=== PATIENT | female | born 1975 | race Caucasian/White ===

== ENCOUNTER 2017-04-25 23:57 | Emergency (ER) | payer OTHER ==
[2017-04-26 01:04] VITALS: BMI 28.1
[2017-04-26] MEDS ORDERED: ONDANSETRON 4 MG/2 ML VIAL IVPUSH STA (01:13)
[2017-04-26] MEDS ORDERED: SODIUM CHLORIDE 1,000 ML IV STA ×2 (01:13→01:14)
[2017-04-26] MEDS ORDERED: PANTOPRAZOLE SODIUM 40 MG in SODIUM CHLORIDE 100 ML IVPB ONE (01:13)
[2017-04-26] MEDS ORDERED: PANTOPRAZOLE SODIUM 100 ML IVPB ONE (01:26)
--- NOTE | 2017-04-26 01:42 | PDOC ---
History of Present Illness - General History Source: Patient Exam Limitations: No Limitations - History of Present Illness Initial Comments: 04/26/17 01:48 The patient is a 41 year old female with significant past medical history of diabetes who presents to the ED for less than 24 hours of abdominal pain. Patient describes pain as nonradiating and crampy in nature in the epigastric region. She reports associated mild nausea, vomiting x2, and several episodes of soft stool. The patient denies fever, chills, cough, SOB, chest pain, and palpitations. The patient denies dysuria, hematuria, urgency, and frequency. Allergies: NKDA Social History: No alcohol, tobacco, or drug use reported. Past Surgical History: s/p cholecystectomy PCP: Dr. Gaby Zuleta <Letitia Connelly - Last Filed: 04/26/17 01:47> - General History Source: Patient <TravisMarck strong - Last Filed: 04/26/17 03:45> - General Chief Complaint: Vomiting/Diarrhea Stated Complaint: VOMITING/DIARRHEA Time Seen by Provider: 04/26/17 01:10 Past History <Letitia Connelly - Last Filed: 04/26/17 01:47> - Past Medical History Diabetes: Yes (type 2) - Psycho/Social/Smoking Cessation Hx Suicidal Ideation: No Smoking History: Never smoked Have you smoked in the past 12 months: No Information on smoking cessation initiated: No Hx Alcohol Use: No Drug/Substance Use Hx: No <Marck Parker - Last Filed: 04/26/17 03:45> - Past Medical History Allergies/Adverse Reactions: Allergies Allergy/AdvReac Type Severity Reaction Status Date / Time No Known Allergies Allergy Verified 04/26/17 01:23 Home Medications: Ambulatory Orders Famotidine [Pepcid] 40 mg PO DAILY #30 tablet 04/26/17 Metformin HCl 500 mg PO BID 04/26/17 Ondansetron [Zofran *Odt*] 4 mg SL TID #30 od.tablet 04/26/17 Review of Systems - Review of Systems Able to Perform ROS?: Yes Comments:: 04/26/17 01:48 CONSTITUTIONAL: Absent: fever, no chills, no fatigue EYES: Absent: visual changes ENT: Absent: ear pain, no sore throat CARDIOVASCULAR: Absent: chest pain, no palpitations RESPIRATORY: Absent: cough, no SOB GI: +abdominal pain, nausea, vomiting, diarrhea Absent: no constipation GENITOURINARY: Absent: dysuria, no frequency, no hematuria MUSCULOSKELETAL: Absent: back pain, no arthralgia, no myalgia SKIN: Absent: rash NEURO: Absent: headache <PjjanetteLetitia - Last Filed: 04/26/17 01:47> *Physical Exam - Vital Signs Last Vital Signs Temp Pulse Resp BP Pulse Ox 98.3 F 76 18 137/91 98 04/26/17 01:02 04/26/17 01:02 04/26/17 01:02 04/26/17 01:02 04/26/17 01:02 - Physical Exam Comments: 04/26/17 01:49 GENERAL: Well-appearing, well-nourished. No apparent distress. HEENT: Normocephalic, atraumatic. PERRL, EOM intact. CARDIOVASCULAR: Normal S1, S2. Regular rate and rhythm. PULMONARY: Clear to auscultation bilaterally. ABDOMEN: Soft, non-distended, mild epigastric tenderness. No rebound or guarding. Normoactive bowel sounds. EXTREMITIES: Normal ROM in all four extremities. No gross deformities. SKIN: Warm, dry. No rash NEUROLOGICAL: No focal neurological deficits. <Letitia Connelly - Last Filed: 04/26/17 01:47> - Vital Signs Last Vital Signs Temp Pulse Resp BP Pulse Ox 98.3 F 76 18 137/91 98 04/26/17 01:02 04/26/17 01:02 04/26/17 01:02 04/26/17 01:02 04/26/17 01:02 <Marck Parker - Last Filed: 04/26/17 03:45> ED Treatment Course - LABORATORY CBC & Chemistry Diagram: 04/26/17 01:40 04/26/17 01:40 <Letitia Connelly - Last Filed: 04/26/17 01:47> - LABORATORY CBC & Chemistry Diagram: 04/26/17 01:40 04/26/17 01:40 <Marck Parker - Last Filed: 04/26/17 03:45> Medical Decision Making - Medical Decision Making 04/26/17 03:45 Dr. Parker: The scribe's documentation has been prepared under my direction and personally reviewed by me in its entirery. I confirm that the note above accurately reflects all work, treatment, procedures, and medical decision making performed by me. <Marck Parker - Last Filed: 04/26/17 03:45> *DC/Admit/Observation/Transfer - Attestations Scribe Attestion: 04/26/17 01:49 Documentation prepared by Letitia Connelly, acting as medical operations supervisor for Marck Parker MD/DO. <Letitia Connelly - Last Filed: 04/26/17 01:47> - Discharge Dispostion Admit: No <Marck Parker - Last Filed: 04/26/17 03:45> Diagnosis at time of Disposition: Gastroenteritis - Discharge Dispostion Disposition: HOME Condition at time of disposition: Stable - Referrals Referrals: Gaby Martines MD [Primary Care Provider] - - Patient Instructions Printed Discharge Instructions: DI for Viral Gastroenteritis -- Adult
[2017-04-26 01:47] LABS: BASOPHIL 0.3 % (0-2.0); EOSINOPHIL 0.1 % (0-4.5); MCHC 33.4 g/dl (32.0-36.0); MEAN CELL VOLUME 92.8 fl (80-96); MEAN PLT VOLUME 8.5 fl (7.5-11.1); NEUTROPHILS 85.1 % (42.8-82.8); PLATELET COUNT 232 K/MM3 (134-434); RDW 13.2 % (11.6-15.6); WHITE BLOOD COUNT 13.3 K/mm3 (4.0-10.0)
[2017-04-26 02:00] LABS: INR 1.07 (0.82-1.09); PROTHROMBIN TIME (PATIENT) 11.8 SEC (9.98-11.88)
[2017-04-26 02:11] LABS: ALBUMIN 3.7 g/dl (3.4-5.0); ALK PHOS 98 U/L (45-117); AMYLASE 48 U/L (25-115); ANION GAP 8 (8-16); BILIRUBIN,TOTAL 0.8 mg/dL (0.2-1.0); CALCIUM 8.9 mg/dL (8.5-10.1); CO2 28 mmol/L (21-32); CREATININE 0.7 mg/dL (0.55-1.02); GLUCOSE,RANDOM 174 mg/dL (74-106); MAGNESIUM 2.2 mg/dL (1.8-2.4); SGOT/AST 24 U/L (15-37); SGPT/ALT 46 U/L (12-78); TOT PROT 8.4 g/dl (6.4-8.2)
[2017-04-26] MEDS ORDERED: KETOROLAC TROMETHAMINE 30 MG/1 ML VIAL IVPUSH ONE (03:06)
[2017-04-26] MEDS ORDERED: KETOROLAC TROMETHAMINE 30 MG/1 ML VIAL ONE (03:12)
[2017-04-26 03:59] VITALS: BP 129/72; PULSE 72; TEMP 97.3
== END 2017-04-26 04:01 | disposition home or self-care (01) ==
LOC: JER 23:57
PROC: 3E033GC Introduction of Other Therapeutic Substance into Peripheral Vein, Percutaneous Approach (ICD-10-PCS; principal; 2017-04-25)
PROC: 3E0333Z Introduction of Anti-inflammatory into Peripheral Vein, Percutaneous Approach (ICD-10-PCS; 2017-04-25)
PROC: 3E033GC Introduction of Other Therapeutic Substance into Peripheral Vein, Percutaneous Approach (ICD-10-PCS; 2017-04-25)
DX: K52.9 Noninfective gastroenteritis and colitis, unspecified (principal)
CPT/HCPCS: 36415; 80053; 82150; 83690; 83735; 84703; 85025; 85610; 99284-25

== ENCOUNTER 2022-02-28 08:44 | Emergency (ER) | payer SELFPAY ==
[2022-02-28 09:36] VITALS: BP 155/87; PULSE 133; TEMP 100; BMI 29.2
[2022-02-28] MEDS ORDERED: FAMOTIDINE 20 MG TABLET PO ONE (09:48)
[2022-02-28] MEDS ORDERED: ACETAMINOPHEN 500 MG TABLET (FP) PO ONE (09:49)
[2022-02-28] MEDS ORDERED: ACETAMINOPHEN 325 MG TABLET (FP) ONE (10:02)
[2022-02-28] MEDS ORDERED: FAMOTIDINE 20 MG TABLET ONE (10:02)
== END 2022-02-28 12:20 | disposition home or self-care (01) ==
LOC: JER 08:44
DX: R50.9 Fever, unspecified (principal); R05.1 Acute cough; R10.13 Epigastric pain
CPT/HCPCS: 0241U-QW; 84703; 99283-25

== ENCOUNTER 2025-05-15 12:11 | Emergency (ER) | payer OTHER ==
[2025-05-15 12:17] VITALS: BP 118/76; PULSE 90; RESP 20; TEMP 98.5; BMI 23.3
[2025-05-15] MEDS ORDERED: KETOROLAC TROMETHAMINE 30 MG/1 ML VIAL ONE (13:57)
[2025-05-15] MEDS: KETOROLAC TROMETHAMINE 30 MG/1 ML VIAL IM ONE (13:58)
== END 2025-05-15 14:56 | disposition home or self-care (01) ==
LOC: JERFT 12:11
PROC: 3E0233Z Introduction of Anti-inflammatory into Muscle, Percutaneous Approach (ICD-10-PCS; principal; 2025-05-15)
DX: M65.4 Radial styloid tenosynovitis [de Quervain] (principal); M25.532 Pain in left wrist
CPT/HCPCS: 73110-TC-LT-FY; 99284-25